=== PATIENT | male | born 1980 | race Caucasian/White ===

== ENCOUNTER 2020-12-14 02:05 | Emergency (ER) | payer OTHER, MEDICAID, SELFPAY ==
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
--- NOTE | ~2020-12-14 | XR_ITS ---
EXAMINATION: XR SHOULDER, LEFT CLINICAL INFORMATION: Pain in left shoulder COMPARISON: 02/24/2017 TECHNIQUE: Three views of the left shoulder. FINDINGS: Glenohumeral alignment is anatomic. No acute fracture is seen. The acromioclavicular joint is intact. XR/XR shoulder LT min 2V IMPRESSION: No acute findings identified.
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
[2020-12-14 02:22] LABS: Glucose, Whole Blood 112 mg/dL (60-115)
[2020-12-14 02:24] VITALS: BP 132/82; BP 173/151; PULSE 75; PULSE 88; RESP 16; TEMP 37; O2SAT 100; O2SAT 99; BMI 41.0
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
[2020-12-14 04:11] VITALS: BP 124/86; PULSE 82; RESP 14; O2SAT 96
--- NOTE | 2020-12-14 04:11 | PC.NURSE ---
C-COLLAR REMOVED BY PROVIDER. PT MOVING ALL EXTREMITIES. PT WOKE EASILY TO VOICE. DRIED BLOOD CLEANED FROM LEFT ELBOW. TELFA PAD AND TINO USED TO COVER SMALL LACERATIONS.
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
== END 2020-12-14 07:33 | disposition home or self-care (01) ==
PROVIDERS: Emergency Provider Emergency Medicine
DX: F19.10 Other psychoactive substance abuse, uncomplicated (principal); S40.012A Contusion of left shoulder, initial encounter; S50.12XA Contusion of left forearm, initial encounter; V47.5XXA Car driver injured in collision with fixed or stationary object in traffic accident, initial encounter; Y93.89 Activity, other specified; Y92.414 Local residential or business street as the place of occurrence of the external cause; Y99.9 Unspecified external cause status
CPT/HCPCS: 70450; 72125; 73030; 73090; 82947; 99283; 99284

== ENCOUNTER 2021-02-25 20:03 | Emergency (ER) | payer MEDICAID, SELFPAY ==
--- NOTE | ~2021-02-25 | XR_ITS ---
EXAMINATION: XR RIBS, LEFT CLINICAL INFORMATION: Left rib pain. COMPARISON: None TECHNIQUE: PA view the chest as well as 3 views of the left ribs. FINDINGS: Lungs are clear. No consolidation, pneumothorax, or pleural effusion. The cardiomediastinal silhouette and pulmonary vasculature are normal. Osseous structures are unremarkable. Ribs are intact. No fractures are identified. XR/XR ribs LT min 3V w CXR1V IMPRESSION: Unremarkable examination.
[2021-02-25 20:11] VITALS: BP 124/78; PULSE 96; RESP 16; TEMP 36.6; O2SAT 99; BMI 17.2
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
[2021-02-25] MEDS: Acetaminophen 325 MG TABLET 975 MG PO (22:10)
[2021-02-25] MEDS: Lidocaine 4 % Patch ADH..PATCH 1 PATCH TRANSDERMA (22:11)
[2021-02-25] MEDS: Ketorolac Tromethamine 15 MG/ML VIAL IM (22:13)
== END 2021-02-25 22:19 | disposition home or self-care (01) ==
PROVIDERS: Emergency Provider Student in an Organized Health Care Education/Training Program
DX: S29.011A Strain of muscle and tendon of front wall of thorax, initial encounter (principal); R07.81 Pleurodynia; X58.XXXA Exposure to other specified factors, initial encounter; Y93.9 Activity, unspecified; Y92.9 Unspecified place or not applicable; Y99.9 Unspecified external cause status; Z79.899 Other long term (current) drug therapy
CPT/HCPCS: 71101; 96372; 99283; 99284; J1885

== ENCOUNTER 2021-03-19 23:11 | Emergency (ER) | payer MEDICAID, SELFPAY ==
--- NOTE | ~2021-03-19 | XR_ITS ---
EXAMINATION: XR CHEST CLINICAL INFORMATION: Shortness of breath COMPARISON: None TECHNIQUE: Frontal view of the chest was obtained. 11:51 PM FINDINGS: No significant abnormality is noted involving the heart, lungs, mediastinum, bony thorax or soft tissues. XR/XR chest 1V IMPRESSION: Unremarkable examination.
[2021-03-19 23:26] VITALS: BP 122/79; PULSE 88; RESP 20; TEMP 37.1; O2SAT 100; BMI 34.9
[2021-03-20] MEDS: predniSONE 20 MG TABLET 60 MG PO (01:24)
[2021-03-20] MEDS: Albuterol Sulfate 90 MCG 8 GM INHALER 2 PUFF INHALE (01:24)
--- NOTE | 2021-03-20 01:25 | ED_ITS ---
HPI - SOB/Dyspnea General Chief Complaint: Dyspnea Stated Complaint: Asthma Time Seen by Provider: 03/20/21 01:15 Source: patient Mode of arrival: ambulatory Limitations: no limitations History of Present Illness HPI Narrative: 40-year-old male with history of asthma presented with difficulty breathing for the past 3- 4 days, patient just moved from [place] and left his medication they are patient has no medicine for his asthma. Patient has been wheezing and feeling tightness in his chest, patient is known to have a longstanding history of asthma since childhood. No history of intubation, no history of recent hospitalization. Related Data Previous Rx's Medication Instructions Recorded ketorolac 10 mg tablet 10 mg PO Q6H PRN 5 Days #20 tab 02/25/21 albuterol sulfate 90 mcg/actuation 1 inh INHALATION QID PRN #8.5 g 03/20/21 aerosol inhaler (ProAir HFA) prednisone 20 mg tablet 20 mg PO BID #10 tab 03/20/21 Allergies Allergy/AdvReac Type Severity Reaction Status Date / Time No Known Allergies Allergy Verified 03/19/21 23:26 [No Known Allergies*] Review of Systems Review of Systems: All other systems are reviewed and are negative Constitutional: Reports as per HPI and Reports no additional constitutional complaints Eyes: Reports as per HPI and Reports no additional eye complaints Reports system reviewed and no additional complaints, except as documented Cardiovascular: Reports as per HPI and Reports no additional cardiovascular complaints Respiratory: Reports as per HPI and Reports no additional respiratory complaints Gastrointestinal: Reports as per HPI and Reports no additional gastrointestinal complaints Genitourinary: Reports no additional female genitourinary complaints Musculoskeletal: Reports no additional musculoskeletal complaints Skin/Breast: Reports system reviewed and no additional complaints, except as docu Psychiatric: Reports no additional psychiatric complaints Endocrine: Reports no additional endocrine complaints Hematologic/Lymphatic: Reports no additional hematologic/lymphatic complaints Allergic/Immunologic: Reports no additional allergic/immunologic complaints Reports system reviewed and no additional complaints, except as documented and Reports Abnormal speech present [facility] Past Medical History Medical History Substance abuse Social History Social History Advance Directives: No Advance Directives Information Provided: Yes Physical Exam Vital Signs: Vital Signs: Last Vital Signs Temp 98.8 F 03/19/21 23:26 Pulse 88 03/19/21 23:26 Resp 20 03/19/21 23:26 BP 122/79 03/19/21 23:26 Pulse Ox 100 03/19/21 23:26 Body Mass Index 34.9 Vital signs have been reviewed as appeared to be correct. Blood pressure normal. Heart rate normal. Respiration rate normal. Temperature normal. Oxygen saturation normal. Appearance: Alert. Oriented X3. No acute distress. Head: Normal external exam. Normocephalic. Atraumatic. No Balderrama signs noted. No raccoon eyes noted Eyes: PERRLA. EOMI. Conjunctiva and sclera normal. Eyelids normal. ENT: TM's Normal. Pharynx normal. Uvula midline. Moist mucous membranes. No trismus noted. No drooling noted. No muffled voice noted. Neck: Normal inspection. Neck supple. FROM. No adenopathy. Thyroid Normal. No meningeal signs. No neck mass noted. CVS: Normal heart rate and rhythm. Heart sound normal. No murmurs noted. Pulses normal throughout. Respiratory: No respiratory distress. Painless inspiration. Breath sounds normal. Mild diffuse expiratory wheezing with prolonged expiration. Chest nontender. No accessory muscle usage noted or decreased air movement noted. Abdomen: Soft and nontender. Bowel sounds normal in all 4 quadrants. No distention noted. No organomegaly noted. No visible injury noted. Back: No CVA tenderness. Full range of motion noted. Skin: Skin warm and dry. Normal skin color. Normal skin turgor. No rashes/lesions/lacerations noted. Extremities: No lower extremity edema. Extremities exhibit normal range of motion. Extremities nontender. Neuro: Oriented X 3. Cranial nerve exam: II-XII are grossly intact No motor deficit. No sensory deficit. Reflexes normal. Course Course Course Narrative: Assessment and plan. 40-year-old male with asthma exacerbation ran out of his medication. Will discharge the patient on albuterol/prednisone for 3-4 days course. MDM - SOB/Dyspnea Imaging Data Chest x-ray: Radiologist's impression: Unremarkable examination. Discharge Plan Discharge Clinical Impression: Asthma with exacerbation Patient Disposition: Home, Self-Care Instructions: Asthma (ED) Prescriptions: New albuterol sulfate [ProAir HFA] 90 mcg/actuation HFA aerosol inhaler 1 inh inhalation QID PRN (Reason: shortness of breath or wheezing) Qty: 8.5 RF: 0 prednisone 20 mg tablet 20 mg PO BID Qty: 10 RF: 0 No Action ketorolac 10 mg tablet 10 mg PO Q6H PRN (Reason: pain) 5 Days Qty: 20 RF: 0 Referrals: Physician,Unknown [Primary Care Provider] - 2 days Stand Alone Forms: Work/School Release
== END 2021-03-20 01:28 | disposition home or self-care (01) ==
PROVIDERS: Emergency Provider Emergency Medicine
DX: J45.901 Unspecified asthma with (acute) exacerbation (principal); F19.10 Other psychoactive substance abuse, uncomplicated
CPT/HCPCS: 71045; 99283

== ENCOUNTER 2021-04-15 16:46 | Emergency (ER) | payer MEDICAID, SELFPAY ==
--- NOTE | ~2021-04-15 | XR_ITS ---
EXAMINATION: XR ANKLE, RIGHT CLINICAL INFORMATION: Bilateral ankle swelling COMPARISON: 3 views left ankle TECHNIQUE: AP, lateral, and mortise views of the right ankle. FINDINGS: The bones and soft tissues are normal. No fracture. Alignment is anatomic. Joint spaces are maintained. No joint effusion. XR/XR ankle RT 2V IMPRESSION: Normal right ankle.
[2021-04-15 17:13] VITALS: BP 137/87; PULSE 95; RESP 18; TEMP 37; O2SAT 98; BMI 34.8
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
[2021-04-15] MEDS: oxyCODONE HCl Immed Release 5 MG TABLET PO (20:21)
== END 2021-04-15 20:27 | disposition home or self-care (01) ==
PROVIDERS: Emergency Provider Emergency Medicine
DX: S93.401A Sprain of unspecified ligament of right ankle, initial encounter (principal); M25.571 Pain in right ankle and joints of right foot; X50.1XXA Overexertion from prolonged static or awkward postures, initial encounter; Y93.9 Activity, unspecified; Y92.9 Unspecified place or not applicable; Y99.9 Unspecified external cause status; Z79.899 Other long term (current) drug therapy
CPT/HCPCS: 73600; 99283

== ENCOUNTER 2022-06-22 16:19 | Emergency (ER) | payer MEDICAID, SELFPAY ==
[2022-06-22 16:29] VITALS: BP 139/78; PULSE 97; RESP 20; TEMP 36.5; O2SAT 97; BMI 32.3
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
[2022-06-22] MEDS: LORazepam 1 MG TABLET 2 MG PO (17:55)
[2022-06-22] MEDS: cephALEXin 500 MG CAPSULE PO ×2 (17:55→20:47)
[2022-06-22] MEDS: Doxycycline Monohydrate 100 MG CAPSULE PO ×2 (17:56→20:47)
[2022-06-22 18:01] LABS: Ethanol < 10 mg/dL; Salicylate < 5.0 mg/dL (15-30)
--- OUTSIDE RECORDS SUMMARY | 2022-06-22 18:05 | XMS_ITS | Continuity of Care Document ---
:1980 Author Organization [facility] Address [address] [place] [id number] Care Team Providers Name Role Phone Not on Staff, PCP Primary Care Physician Unavailable Encounter [facility] Date(s): 01/29/20 - 01/29/[address] [address]- [facility] Discharge Disposition: A-D/C Home Attending Physician: Fiona Cornelius MD Admitting Physician: Fiona Cornelius MD Referring Physician: Not on Staff, Referring MD Allergies, Adverse Reactions, Alerts Substance Reaction Severity Status Bee Stings Active Medications Bactrim DS 800 mg-160 mg oral tablet 1 tablet, By Mouth, 2 times a day, # 14 tablet, 0 Refills, Maintenance, 01/29/20 13:22:00 EDT, [facility], 1 tablet By Mouth 2 times a day, 100.6, kg, 01/29/20 5:32:00 EDT, Dry Weight Start Date: 01/29/20 Status: OrderedEpiPen 2-Maurice 0.3 mg injectable kit = 0.3 mg, Intramuscular, Once, PRN Other, # 1 kit, 4 Refills, Soft Stop, 06/01/17 14:29:20 Start Date: 06/01/17 Status: Orderedibuprofen 600 mg oral tablet See Instructions, 1 tablet as needed up to every 6 hours as needed for pain, # 20 tablet, Refills 0,Tot. Refills 0, Maintenance, 01/29/20 13:23:00 EDT, Instructions Replace Required Details, Route to Pharmacy Electronically, [facility] Start Date: 01/29/20 Status: OrderedKeflex monohydrate 500 mg oral capsule 1 capsule = 500 mg, By Mouth, 3 times a day, # 21 capsule, 0 Refills, Maintenance, 01/29/20 13:22:00EDT, [facility], 100.6, kg, 01/29/20 5:32:00 EDT, Dry Weight Start Date: 01/29/20 Stop Date: 02/05/20 Status: Ordered Vital Signs Most recent to oldest [Reference 1 2 3 Range]: Weight 100.6 kg 100.6 kg (01/29/20 2:06 PM) (01/29/20 5:32 AM) Oxygen Saturation [94-100 %] 97 % 98 % 100 % (01/29/20 2:06 PM) (01/29/20 7:45 AM) (01/29/20 5:32 A M) Pulse Rate [55-90 bpm] 78 bpm 96 bpm 98 bpm (01/29/20 2:06 PM) *H* *H* (01/29/20 7:45 AM) (01/29/20 5:32 AM ) Blood Pressure [90-138/55-84 mm 151/86 mm Hg 138/90 mm Hg 138/80 mm Hg Hg] *H* (01/29/20 7:45 AM) (01/29/20 5:32 AM ) (01/29/20 2:06 PM) Respiratory Rate [16-30 br/min] 19 br/min 17 br/min 20 br/min (01/29/20 2:06 PM) (01/29/20 7:45 AM) (01/29/20 5:32 A M) Temperature [96.8-100.4 DegF] 98.0 DegF 98.8 DegF (01/29/20 7:45 AM) (01/29/20 5:32 AM) Mode of Delivery (Oxygen) Room air Room air Room a ir (01/29/20 2:06 PM) (01/29/20 7:45 AM) (01/29/20 5:32 A M) Blood pressure sites Arm, right Arm, right Arm, right (01/29/20 2:06 PM) (01/29/20 7:45 AM) (01/29/20 5:32 A M) Temperature Route Oral Oral (01/29/20 7:45 AM) (01/29/20 5:32 AM) Dry Weight 100.6 kg 100.6 kg (01/29/20 2:06 PM) (01/29/20 5:32 AM) Weight Obtained Via Standing scale (01/29/20 5:32 AM) Dry Weight Obtained Via Standing scale (01/29/20 5:32 AM) Social History Social History Type Response Smoking Status Never smoker entered on: 06/01/17 Sex
--- OUTSIDE RECORDS SUMMARY | 2022-06-22 18:05 | XMS_ITS | Continuity of Care Document ---
:1980 Author Organization [facility] Address [address] [place] [address]- Care Team Providers Name Role Phone Not on Staff, PCP Primary Care Physician Unavailable Encounter [facility] Date(s): 03/11/22 - 03/11/[address] [address]- Discharge Disposition: A-D/C Walkout Attending Physician: Not on Staff, Attending MD Admitting Physician: Not on Staff, Admitting MD Referring Physician: Not on Staff, Referring MD Allergies, Adverse Reactions, Alerts Substance Reaction Severity Status Bee Stings Active Medications Bactrim DS 800 mg-160 mg oral tablet 1 tablet, By Mouth, 2 times a day, # 14 tablet, 0 Refills, Maintenance, 01/29/20 13:22:00 EDT, [facility], 1 tablet By Mouth 2 [...] Replace Required Details, Route to Pharmacy Electronically, [facility]... Start Date: 01/29/20 Status: OrderedKeflex monohydrate 500 mg oral capsule 1 capsule = 500 mg, By Mouth, 3 times a day, # 21 capsule, 0 Refills, Maintenance, 01/29/20 13:22:00EDT, [facility], 100.6, kg, 01/29/20 5:32:00 EDT, Dry Weight Start Date: 01/29/20 Stop Date: 02/05/20 Status: Ordered Vital Signs Most recent to oldest [Reference Range]: 1 Oxygen Saturation [94-100 %] 98 % (03/11/22 7:33 PM) Pulse Rate [55-90 bpm] 119 bpm *H* (03/11/22 7:33 PM) Respiratory Rate [16-30 br/min] 18 br/min (03/11/22 7:33 PM) Mode of Delivery (Oxygen) Room air (03/11/22 7:33 PM) Social History Social History Type Response Smoking Status Never smoker entered on: 06/01/17 Sex
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
--- OUTSIDE RECORDS SUMMARY | 2022-06-22 18:05 | XMS_ITS | Continuity of Care Document ---
:1980 Author Organization [facility] Address [address] [place] [address]- Care Team Providers Name Role Phone Not on Staff, PCP Primary Care Physician Unavailable [place] [facility] [place] 03/11/[address] [address]- Discharge Disposition: A-D/C Walkout Attending Physician: Not on Staff, Attending MD Admitting Physician: Not on Staff, Admitting MD Referring Physician: Not on Staff, Referring MD Allergies, Adverse Reactions, Alerts Substance Reaction Severity Status Bee Stings Active Medications Bactrim DS 800 mg-160 mg oral tablet 1 tablet, By Mouth, 2 times a day, # 14 tablet, 0 Refills, Maintenance, 01/29/20 13:22:00 EDT, [facility], 1 tablet By Mouth 2 [...] Replace Required Details, Route to Pharmacy Electronically, [facility]... Start Date: 01/29/20 Status: OrderedKeflex monohydrate 500 mg oral capsule 1 capsule = 500 mg, By Mouth, 3 times a day, # 21 capsule, 0 Refills, Maintenance, 01/29/20 13:22:00EDT, [facility], 100.6, kg, 01/29/20 5:32:00 EDT, Dry Weight Start Date: 01/29/20 Stop Date: 02/05/20 Status: Ordered Vital Signs Most recent to oldest [Reference Range]: 1 Oxygen Saturation [94-100 %] 99 % (03/11/22 10:38 PM) Pulse Rate [55-90 bpm] 101 bpm *H* (03/11/22 10:38 PM) Blood Pressure [90-138/55-84 mm Hg] 159/97 mm Hg *H* (03/11/22 10:38 PM) Respiratory Rate [16-30 br/min] 16 br/min (03/11/22 10:38 PM) Temperature [96.8-100.4 DegF] 98.5 DegF (03/11/22 10:38 PM) Mode of Delivery (Oxygen) Room air (03/11/22 10:38 PM) Blood pressure sites Arm, right (03/11/22 10:38 PM) Temperature Route Oral (03/11/22 10:38 PM) Social History Social History Type Response Smoking Status Never smoker entered on: 06/01/17 Sex
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
[2022-06-22 18:08] LABS: COVID-19 Test Negative (Negative); IDNOW Serial# 16C4AD1C
[2022-06-22 18:11] LABS: Acetaminophen LAB < 1 mcg/mL (<30)
[2022-06-22 19:43] VITALS: BP 138/74; PULSE 78; RESP 18; TEMP 36.6; O2SAT 99
[2022-06-22] MEDS: Ketorolac Tromethamine 30 MG/ML VIAL IM (20:47)
--- NOTE | 2022-06-22 21:03 | PHA.MEDREC ---
Pharmacy Consult ? Medication Reconciliation Pharmacy has completed the medication reconciliation. Pt states they are taking clonazepam but I do not see claim history or anything on [employer]
--- NOTE | 2022-06-22 21:33 | MHC.RECOVSUP ---
? Reason for consult:OPI o? Current location:[facility]? o? Identified substance use concern:? -? Seeking ATS (detox) -? Support ? Intervention: o? ATS bed search started/completed/in process o? Harm reduction discussion ? Plan: o? Bed search in progress to o? Follow up tomorrow? ? Additional information:RC met with pt started bed search, was unsuccessful, please follow up tomorrow.
[2022-06-22] MEDS: LORazepam 1 MG TABLET PO (22:32)
[2022-06-23] MEDS: LORazepam 1 MG TABLET PO (00:26)
[2022-06-23] MEDS: diphenhydrAMINE HCL 25 MG CAPSULE 50 MG PO (00:32)
[2022-06-23] MEDS: Melatonin 3 MG TABLET 6 MG PO (00:33)
[2022-06-23 02:00] VITALS: BP 103/59; PULSE 82; TEMP 36.6; O2SAT 98
== END 2022-06-23 05:22 | disposition home or self-care (01) ==
PROVIDERS: Physician Assistant; Emergency Provider Emergency Medicine
DX: S91.331A Puncture wound without foreign body, right foot, initial encounter (principal); F11.10 Opioid abuse, uncomplicated; M79.671 Pain in right foot; W34.00XA Accidental discharge from unspecified firearms or gun, initial encounter; Y93.9 Activity, unspecified; Y92.9 Unspecified place or not applicable; Y99.9 Unspecified external cause status; Z20.822 Contact with and (suspected) exposure to COVID-19; Z79.899 Other long term (current) drug therapy
CPT/HCPCS: 36415; 80143; 80179; 82077; 87635; 96372; 99284; J1885

== ENCOUNTER 2022-09-07 15:08 | Emergency (ER) | payer MEDICAID, SELFPAY ==
--- NOTE | ~2022-09-07 | XR_ITS ---
EXAMINATION: RIGHT FOOT. RIGHT ANKLE. CLINICAL INFORMATION: Swelling and pain COMPARISON: 04/15/2021 TECHNIQUE: 3 views of the right foot. 3 views of the right ankle. FINDINGS: Right foot: There is an oblique slightly displaced comminuted fracture at the base of the second metatarsal with slight lateral midfoot subluxation. There appears to be a healing fracture with exuberant callus formation at the fourth metatarsal head. Alignment however is near-anatomic. The right ankle mortise is intact. There is no evidence for an acute ankle fracture or subluxation. XR/XR ankle RT 2V IMPRESSION: Midfoot fracture with lateral subluxation noted. Other comments as above.
--- NOTE | ~2022-09-07 | XR_ITS ---
EXAMINATION: RIGHT FOOT. RIGHT ANKLE. CLINICAL INFORMATION: Swelling and pain COMPARISON: 04/15/2021 TECHNIQUE: 3 views of the right foot. 3 views of the right ankle. FINDINGS: Right foot: There is an oblique slightly displaced comminuted fracture at the base of the second metatarsal with slight lateral midfoot subluxation. There appears to be a healing fracture with exuberant callus formation at the fourth metatarsal head. Alignment however is near-anatomic. The right ankle mortise is intact. There is no evidence for an acute ankle fracture or subluxation. XR/XR foot RT 2V IMPRESSION: Midfoot fracture with lateral subluxation noted. Other comments as above.
[2022-09-07 15:21] VITALS: BP 150/85; BP 180/95; PULSE 100; PULSE 142; RESP 20; TEMP 38.1; O2SAT 100; O2SAT 99
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
[2022-09-07] MEDS: Ibuprofen 600 MG TABLET PO (15:50)
[2022-09-07 16:28] VITALS: BP 119/63; PULSE 85; RESP 20; TEMP 37.5; O2SAT 97
--- NOTE | 2022-09-07 17:14 | HO.SUDE ---
CARE Team met with pt for an SUDE. Pt presented to [facility] secondary to an Heroin overdose. Pt reports using three bags today and reports that he was just released from [facility] today after 7 days. He reports he did not want to leave, I wasn't ready . He reports [facility] did not have any beds at [facility] so he had to leave. Following discharge pt relapsed and overdosed, he was narcaned by PD and reports this is his first overdose. Pt states that addiction has been a ferguson for him for the past 20 years. He was released from correction on Sep 01 and immediately checked himself in. He states that he has no family support around in this area, all his family resides in [place]. He has a 21 year old child. Pt is tearful and states he suffers from PTSD. He does not have a therapist or psychiatrist. He reports previously being on suboxone. Pt is pleasant and appears motivated for treatment. He advocates for a [facility] and states he doesn't want to go out and use again. CARE Team spoke to ED provider and made her aware of plan. Jeremiah, Shoulder Sawyer will meet with pt and try for [facility]. Pt is able to stay the night as the for bedsearch.
--- NOTE | 2022-09-07 17:39 | MHC.RECOVSUP ---
? Reason for consult Recovery Support o Current location: ED06H o Identified substance use concern: Heroin - Support ? Intervention: o Community resources provided o Harm reduction discussion ? Plan: o Referral to [facility] o Follow up tomorrow o Patient awaiting crisis evaluation o Patient to follow up with [facility] after discharge ? Additional information: Met with patient and patient stated that he really wants to go to a vermin exterminator program.. stated that he did not want to leave [facility].. Patient want [facility] what ever is open.
[2022-09-07] MEDS: oxyCODONE HCl Immed Release 5 MG TABLET PO ×2 (18:51→20:20)
[2022-09-08] VITALS: BP 127/78; PULSE 68; RESP 15; TEMP 36.6; O2SAT 96
[2022-09-08] MEDS: oxyCODONE HCl Immed Release 5 MG TABLET 10 MG PO (00:38)
[2022-09-08 04:00] VITALS: BP 97/42; PULSE 61; RESP 14; TEMP 36.5; O2SAT 96
[2022-09-08 06:53] VITALS: BP 107/42; PULSE 64; RESP 15; TEMP 36.6; O2SAT 97
--- NOTE | 2022-09-08 08:32 | PC.NURSE ---
pt ambulating with steady gait with right foot in posterior splint, bearing weight without issue. not using assistive device. pt requesting breakfast, tray ordered. awaiting ordered otc topical for eczema. pt in no distress. awaiting detox intake. wctm.
[2022-09-08] MEDS: Acetaminophen 325 MG TABLET 975 MG PO ×3 (08:47→19:56)
[2022-09-08] MEDS: oxyCODONE HCl Immed Release 5 MG TABLET PO ×3 (08:47→21:03)
[2022-09-08] MEDS: Ibuprofen 600 MG TABLET PO ×2 (08:47→14:55)
[2022-09-08] MEDS: Hydrocortisone 1 % Cream 28.35 GM TUBE 1 APPL TOPICAL (09:22)
--- NOTE | 2022-09-08 09:53 | PC.NURSE ---
pt given late breakfast tray, also given prn pain medications ordered this am by mlp. tolerating po without issue. also given prn topical for eczema, pt able to complete adls on own. awaiting recovery engineer this am for detox placement. nad.
[2022-09-08 10:00] VITALS: BP 90/45; PULSE 63; RESP 14; TEMP 36.5; O2SAT 96
--- NOTE | 2022-09-08 10:17 | MHC.RECOVRN ---
Met with pt to follow up on dc plan. Pt looking for inpatient [facility] tx, specifically [facility]. Pt educated regarding admission criteria for specific levels of care as well as barrier of overdose yesterday. T/w awaiting call back from [facility] to determine if pt can return to [facility] or [facility].
--- NOTE | 2022-09-08 13:59 | MHC.RECOVRN ---
Pt accepted to [facility] for 6:30PM. Will admit to [facility] with plan to transition to [facility].
[2022-09-08 14:43] VITALS: BP 92/38; PULSE 63; RESP 14; TEMP 36.5; O2SAT 98
--- NOTE | 2022-09-08 19:38 | MHC.EDTECH ---
Cleared patients dinner tray. Brought patient two puddings.
--- NOTE | 2022-09-08 19:59 | PC.NURSE ---
assumed care of pt pt c/o 05/09 R foot pain admin tylenol po PRN per MAR no apparent distress, quietly resting while watching tv
--- NOTE | 2022-09-08 21:05 | PC.NURSE ---
admin oxycodone 5mg PO early per verbal order of Dr Maki. Unable to scan med due to barcode being faded. Charge nurse aware and shown barcode. Per Dr Maki next admin for oxycodone not for another 10 hrs from last admin.
--- NOTE | 2022-09-08 21:10 | MHC.RECOVSUP ---
? Reason for consult:OPI o? Current location:[id number]? o? Identified substance use concern:? -? Overdose -? Support ? Intervention: o? Community resources provided o? Harm reduction discussion ? Plan: o? Referral to [facility] o? Bed search in progress to o? Follow up tomorrow? ? Additional information:RC met with pt and discussed ATS at [facility], pt stated he has a referral for [facility] and wanted me to follow up onthe status. I emailed Josi Moreno who handles the referrals, please follow up tomorrow [email or web address]
[2022-09-08 23:37] VITALS: BP 101/43; PULSE 68; RESP 18; TEMP 36.7; O2SAT 98
[2022-09-09] MEDS: Ibuprofen 600 MG TABLET PO ×2 (00:15→08:46)
--- NOTE | 2022-09-09 00:22 | PC.NURSE ---
pt resting quietly while watching tv, no apparent distress
[2022-09-09 02:53] VITALS: BP 105/44; PULSE 66; RESP 18; TEMP 36.7; O2SAT 98
--- NOTE | 2022-09-09 03:29 | PC.NURSE ---
Addendum entered by Naheed Emery 09/09/22 03:30: *for tylenol PO Original Note: per dr loo, med held- pt has met daily max
[2022-09-09 05:20] VITALS: RESP 16; O2SAT 98
--- NOTE | 2022-09-09 05:22 | PC.NURSE ---
pt sleeping, no apparent distress
[2022-09-09 07:40] VITALS: BP 101/54; PULSE 53; RESP 16; TEMP 36.8; O2SAT 98
[2022-09-09] MEDS: Acetaminophen 325 MG TABLET 975 MG PO (08:46)
[2022-09-09 09:31] VITALS: BP 109/60; PULSE 57; RESP 16; TEMP 36.9; O2SAT 97
--- NOTE | 2022-09-09 10:29 | MHC.RECOVRN ---
Pt does not meet level of care for residential treatment at this time. Pt accepted to [facility] for 1 pm today, will transition to [facility] and then will be eligible for residential treatment. RN aware. Will be transported via [employer].
[2022-09-09] MEDS: oxyCODONE HCl Immed Release 5 MG TABLET PO (11:48)
== END 2022-09-09 11:54 | disposition other institution (70) ==
PROVIDERS: Emergency Provider Emergency Medicine
DX: R40.4 Transient alteration of awareness (principal); T40.1X1A Poisoning by heroin, accidental (unintentional), initial encounter; Y92.410 Unspecified street and highway as the place of occurrence of the external cause; F19.10 Other psychoactive substance abuse, uncomplicated; S92.321A Displaced fracture of second metatarsal bone, right foot, initial encounter for closed fracture; W10.1XXA Fall (on)(from) sidewalk curb, initial encounter; Y93.01 Activity, walking, marching and hiking; Y92.414 Local residential or business street as the place of occurrence of the external cause; Y99.9 Unspecified external cause status
CPT/HCPCS: 29515; 73600; 73620; 99285